=== PATIENT | female | born 1965 | race Caucasian/White ===

== ENCOUNTER → 2018-05-10 | Outpatient (CLI) | payer BC | LOC: MC.RAD 14:00 | DX: Z12.31 Encounter for screening mammogram for malignant neoplasm of breast (principal); N63.10 Unspecified lump in the right breast, unspecified quadrant ==

== ENCOUNTER → 2018-05-17 | Outpatient (CLI) | payer BC | LOC: MC.RAD 14:00 | DX: N63.10 Unspecified lump in the right breast, unspecified quadrant (principal) ==

== ENCOUNTER → 2019-06-25 | Outpatient (CLI) | payer BC | LOC: MC.RAD 16:07 | DX: Z12.31 Encounter for screening mammogram for malignant neoplasm of breast (principal); N63.10 Unspecified lump in the right breast, unspecified quadrant ==

== ENCOUNTER → 2021-10-21 | Outpatient (CLI) | payer BC | LOC: COL.RAD 07:36 | DX: K80.20 Calculus of gallbladder without cholecystitis without obstruction (principal); K83.8 Other specified diseases of biliary tract ==

== ENCOUNTER 2021-11-28 07:23 | Day surgery (SDC) | payer BC ==
[~2021-11-28] VITALS: Ht 147.3 cm; Wt 73.1 kg
[2021-11-28 08:07] VITALS: BP 129/54; PULSE 81; TEMP 97.9
[2021-11-28] MEDS ORDERED: MOTRIN 600600 MG/TAB PO (12:16)
[2021-11-28] MEDS ORDERED: NORCO 325 MG-51 TAB PO (12:17)
[2021-11-28 12:30] VITALS: BP 154/76; PULSE 95; TEMP 97.7
[2021-11-28 12:45] VITALS: BP 153/69; PULSE 99
[2021-11-28 13:00] VITALS: BP 162/77; PULSE 102
[2021-11-28 13:15] VITALS: BP 159/65; PULSE 97
[2021-11-28 13:30] VITALS: BP 150/63; PULSE 92
--- NOTE | 2021-11-28 16:46 | NUR ---
1230: Patient arrived back into [facility] from PACU. Patient drowsy but arousable. Friend at bedside. Report recieved from SADIE Bustamante. Patient states she feels nauseous. Call light within reach. Vital signs stable. 1240: PRN Zofran given per OCT. Patient dry heaving. 1245: Patient states she feels some relief from Zofran. Vital signs stable. 1300: Patient states she would like to try some water. Patient put on room air, tolerating room air well. 1305: Patient had small clear emesis of water. PRN Phenergen given per OCT. 1315: Patient vitally stable. Resting in room with eyes closed. 1330: Patient up to restroom. Up stand by assist. Patient was able to successfully void. Patient placed on [place] Lock. Patient states she was having some relief from zofran and phenergen and would like to try some crackers. Tolerating water well at this time. 1345: Patient tolerated crackers well. 1400: Patient tolerated crackers with no nausea. Tolerated water. Voided successfully. PRN tylenol given for pain. Patient states pain is mostly around largest incision site when she moves. Patient got dressed with assistance from her friend. IV removed without complications. Went through discharge instructions with patient and friend. Questions answered. Follow up appintment made. Patient escorted to patient entrance via wheelchair. Got into personal vehicle unassisted. Patient left in the care of her friend, Naima.
== END 2021-11-28 14:15 | disposition home or self-care (01) ==
LOC: SDCO 07:23
DX: K80.64 Calculus of gallbladder and bile duct with chronic cholecystitis without obstruction (principal); K76.0 Fatty (change of) liver, not elsewhere classified; Z87.891 Personal history of nicotine dependence
CPT/HCPCS: J0690; J1100; J1885; J2405; J2550; J2704; J7120; Q9967

== ENCOUNTER 2022-01-11 06:53 | Outpatient (CLI) | payer BC ==
[2022-01-11] VITALS (12 sets, daily range): BP systolic 121–163; BP diastolic 67–84; PULSE 67–92; TEMP 98.3
[~2022-01-11] VITALS: Ht 147.3 cm; Wt 68.9 kg
[~2022-01-11 06:53] MED LIST: MOTRIN 600600 MG/TAB PO; NORCO 325 MG-51 TAB PO
--- NOTE | 2022-01-11 10:30 | NUR ---
Pt is ready for discharge at this time. Pt has done well during her recovery, she is eupnic and denies any pain with inspiration. Dr. Gonzalez has been in to see pt and discuss test result and poc with pt. I have reviewed dc instructions with pt. She verbalized understanding. Pt has been up and ambulatory with steady gait. IV is dc'd with cath intact, dressing applied. Pt escorted via wheelchair to exit. A friend is with pt to transport her home.
== END 2022-01-11 10:30 | disposition home or self-care (01) ==
LOC: COL.RAD 06:53
DX: J18.1 Lobar pneumonia, unspecified organism (principal); R91.8 Other nonspecific abnormal finding of lung field; Z98.890 Other specified postprocedural states
CPT/HCPCS: J3010

== ENCOUNTER 2022-02-06 09:01 | Day surgery (SDC) | payer BC ==
[~2022-02-06] VITALS: Ht 147.3 cm; Wt 65.0 kg
[2022-02-06] MEDS ORDERED: b12 PO (11:43)
[2022-02-06] MEDS ORDERED: FOLIC ACID0.4 MG PO (11:43)
[2022-02-06 12:24] VITALS: BP 133/61; PULSE 99; TEMP 99
[2022-02-06 14:57] VITALS: BP 114/52; PULSE 90; TEMP 97.6
[2022-02-06] MEDS ORDERED: NORCO 325 MG-51 TAB PO (15:03)
--- NOTE | 2022-02-06 15:11 | NUR ---
1457 - PT arrives drowsy but oriented. Monitors applied and VSS. PT denies nausea and pain. Visitor remains present. PT oriented to room and call lazo, within reach. PT provided a warm muffin and ice water per request. Will monitor per intervals. Incision site is dry and intact.
[2022-02-06 15:12] VITALS: BP 118/65; PULSE 95
--- NOTE | 2022-02-06 15:15 | NUR ---
1512 - PT A&O. VSS. PT expressed desire to be discharged. PT continues to deny nausea and pain. Call lazo remains within reach.
[2022-02-06 15:27] VITALS: BP 122/63; PULSE 91
--- NOTE | 2022-02-06 15:40 | NUR ---
1527 - VSS. IV discontinued. Catheter tip intact. Pressure bandage applied. No redness or swelling noted. DC instructions and educational material reviewed with the PT, who verbalized understanding and signed the realted paperwork. Port-a-cath ID packet reviewed. PT minimally assisted sitting at bedside. PT denied dizziness and denied needing assistance changing into personal clothes. Call lazo remains within reach if needed. Questions answered to PT satisfaction.
--- NOTE | 2022-02-06 15:57 | NUR ---
1550 - [place] [facility] [place] the [place] entrence. PT has DC packet and personal belongings; PT was transferred into the care of Annabel, who is present to drive private car.
== END 2022-02-06 15:50 | disposition home or self-care (01) ==
LOC: SDCO 09:01
DX: C34.91 Malignant neoplasm of unspecified part of right bronchus or lung (principal)
CPT/HCPCS: C1788; J0690; J1644; J2704; J3010; J7120